=== PATIENT | male | born 1960 | race Asian ===

== ENCOUNTER 2024-06-12 17:00 | Inpatient (IN) | payer OTHER ==
[~2024-06-12] VITALS: Ht 180.3 cm; Wt 108.4 kg
[2024-06-12 20:00] VITALS: BP 138/92; PULSE 87; RESP 20; TEMP 97.5; O2SAT 99
[2024-06-12] MEDS ORDERED: ACETAMINOPHEN 325 MG TABLET PO PRN (20:30)
[2024-06-12] MEDS: LACTULOSE 20 GM/30 ML SOLUTION UDCUP PO SCH (21:53)
[2024-06-12] MEDS: SACUBITRIL/VALSARTAN 24-26 MG TABLET PO SCH (21:54)
[2024-06-12] MEDS: DICLOFENAC SODIUM 1% 100 GM GEL [2GM] TP SCH (21:54)
[2024-06-12] MEDS: dilTIAZem HCL 30 MG TABLET PO SCH (21:54)
[2024-06-12] MEDS: MELATONIN 5 MG TABLET PO PRN (23:16)
[2024-06-12] MEDS: ACETAMINOPHEN 325 MG TABLET PO PRN (23:16)
[2024-06-13 08:00] VITALS: BP 147/83; PULSE 82; RESP 18; TEMP 98.1; O2SAT 97
[2024-06-13 08:39] LABS: BASOPHILS % (AUTO) 0.5 % (0.0-2.0); EOSINOPHILS % (AUTO) 2.6 % (1.0-6.0); HEMATOCRIT 40.7 % (41-53); HEMOGLOBIN 13.8 g/dL (13.5-17.5); LYMPHOCYTES # (AUTO) 1.5 K/uL (1.0-4.8); LYMPHOCYTES % (AUTO) 16.4 % (22.0-44.0); MEAN CORPUSCULAR HEMOGLOBIN 29.5 pg (26.0-34.0); MEAN CORPUSCULAR VOLUME 87 fL (80-100); MONOCYTES # (AUTO) 0.8 K/uL (0.1-1.0); MONOCYTES % (AUTO) 9.1 % (2.0-9.0); NEUTROPHILS # (AUTO) 6.4 K/uL (1.8-7.7); NEUTROPHILS % (AUTO) 71.4 % (40.0-70.0); PLATELET COUNT (AUTO) 197 K/uL (150-450); RED BLOOD CELL COUNT(AUTO) 4.69 MIL/uL (4.50-5.90); RED CELL DISTRIBUTION WIDTH 15.2 % (11.5-14.5); WHITE BLOOD COUNT (AUTO) 8.9 K/uL (4.5-11.0)
[2024-06-13] MEDS: carvediloL 12.5 MG TABLET PO SCH (09:01)
[2024-06-13] MEDS: DAPAGLIFLOZIN PROPANEDIOL 5 MG TABLET PO SCH (09:01)
[2024-06-13 09:06] LABS: ALANINE AMINOTRANSFERASE 24 U/L (12-78); ALBUMIN 3.2 g/dL (3.4-5.0); ALKALINE PHOSPHATASE 143 U/L (46-116); ANION GAP 8 mmol/L (8-16); ASPARTATE AMINOTRANSFERASE 22 U/L (15-37); BILIRUBIN,TOTAL 0.6 mg/dL (0.1-1.0); CALCIUM, TOTAL 9.5 mg/dL (8.8-10.5); CARBON DIOXIDE 29 mmol/L (22-29); CHLORIDE 105 mmol/L (98-107); CREATININE 0.81 mg/dL (0.60-1.30); GLOMERULAR FILTR. RATE CALC > 60 mL/min (>60); GLUCOSE,RANDOM 95 mg/dL (70-110); POTASSIUM 3.9 mmol/L (3.5-5.1); SODIUM SERUM 142 mmol/L (136-145); TOTAL PROTEIN, SERUM 6.9 g/dL (6.4-8.2); UREA NITROGEN, BLOOD 17 mg/dL (7-18)
[2024-06-13] MEDS ORDERED: MULTIVITAMINS WITH MINERALS, THERAPEUTIC TABLET PO ONE (10:45)
[2024-06-13 16:03] VITALS: BP 123/85; PULSE 88; RESP 18; O2SAT 99
[2024-06-13 20:00] VITALS: BP 109/87; PULSE 80; RESP 20; TEMP 98.1; O2SAT 98
[2024-06-14 08:15] VITALS: BP 128/92; PULSE 80; RESP 17; TEMP 97.8; O2SAT 98
[2024-06-14] MEDS: MUPIROCIN CALCIUM 2% 22 GM OINTMENT NASAL SCH (09:19)
[2024-06-14] MEDS: MULTIVITAMINS WITH MINERALS, THERAPEUTIC TABLET PO SCH (09:20)
[2024-06-14] MEDS: NEOMYCIN/BACITRACIN/POLYMYXIN B 30 GM OINTMENT TP SCH (09:21)
[2024-06-14 17:00] VITALS: BP 123/79; PULSE 78; RESP 18; TEMP 98.8; O2SAT 100
[2024-06-14 21:47] VITALS: BP 111/84; PULSE 60; RESP 18; TEMP 98.2; O2SAT 98
[2024-06-14 23:07] VITALS: O2SAT 98
[2024-06-15 07:40] VITALS: BP 128/99; PULSE 85; RESP 18; TEMP 97.9; O2SAT 97
[2024-06-15 08:00] VITALS: O2SAT 97
[2024-06-15 16:50] VITALS: BP 125/87; PULSE 65
[2024-06-15 20:00] VITALS: BP 109/94; PULSE 80; RESP 18; TEMP 98.1; O2SAT 100
[2024-06-15] MEDS: DOCUSATE SODIUM 250 MG CAPSULE PO SCH (20:41)
[2024-06-15] MEDS: SENNOSIDES 8.6 MG TABLET PO SCH (20:41)
[2024-06-15 22:10] VITALS: BP 118/87; PULSE 78
[2024-06-16] MEDS: ONDANSETRON 4 MG TABLET PO PRN (03:45)
[2024-06-16 08:20] VITALS: BP 115/92; PULSE 83; RESP 18; TEMP 96.9; O2SAT 96
[2024-06-16] MEDS: DOCUSATE SODIUM/BENZOCAINE 283-20MG/5 ML MINI-ENEMA PR PRN (15:09)
[2024-06-16 16:10] VITALS: BP 109/68; PULSE 72
[2024-06-16 20:00] VITALS: BP 108/72; PULSE 64; RESP 20; TEMP 97.5; O2SAT 98
[2024-06-16 20:53] VITALS: BP 112/85; PULSE 92; RESP 20; O2SAT 98
[2024-06-16] MEDS: SENNOSIDES 8.6 MG TABLET PO SCH (21:12)
[2024-06-17 08:00] VITALS: BP 110/91; PULSE 80; RESP 20; TEMP 98.6; O2SAT 100
[2024-06-17 16:12] VITALS: BP 108/77; PULSE 76; RESP 18; O2SAT 99
[2024-06-17 19:56] VITALS: BP 122/96; PULSE 79; RESP 18; TEMP 98.2; O2SAT 98
[2024-06-17 21:20] VITALS: O2SAT 98
[2024-06-18 08:00] VITALS: BP 133/95; PULSE 83; RESP 18; TEMP 98.2; O2SAT 97
[2024-06-18 16:00] VITALS: BP 128/83; PULSE 87; RESP 18; O2SAT 99
[2024-06-18 20:00] VITALS: BP 118/77; PULSE 85; RESP 20; TEMP 98.3; O2SAT 99
[2024-06-19 08:00] VITALS: BP 126/97; PULSE 87; RESP 18; TEMP 97.5; O2SAT 97
[2024-06-19 16:30] VITALS: BP 128/88; PULSE 88; RESP 15; O2SAT 98
[2024-06-19 20:00] VITALS: BP 102/69; PULSE 79; RESP 18; TEMP 98.2; O2SAT 96
[2024-06-19 21:00] VITALS: BP 121/79; PULSE 85; RESP 20; O2SAT 96
[2024-06-20 08:35] VITALS: BP 123/73; PULSE 92; RESP 20; TEMP 97.5; O2SAT 97
[2024-06-20 08:38] VITALS: O2SAT 97
[2024-06-20 20:00] VITALS: BP 133/96; PULSE 92; RESP 20; TEMP 97.8; O2SAT 96
[2024-06-21 08:00] VITALS: BP 133/74; PULSE 89; RESP 19; TEMP 98.2; O2SAT 98
[2024-06-21 13:50] LABS: APPEARANCE,URINE CLEAR (CLEAR); BILIRUBIN,URINE NEGATIVE (NEGATIVE); COLOR,URINE YELLOW (YELLOW); GLUCOSE, URINE (UA) >=1000 mg/dL (NEGATIVE); KETONES,URINE NEGATIVE (NEGATIVE); LEUKOCYTE ESTERASE ,URINE NEGATIVE (NEGATIVE); NITRATE,URINE NEGATIVE (NEGATIVE); OCCULT BLOOD,URINE NEGATIVE (NEGATIVE); PROTEIN,URINE NEGATIVE (NEGATIVE); SPECIFIC GRAVITIY, URINE 1.039 (1.003-1.030); UROBILINOGEN,URINE <=1.0 mg/dL (<=1.0)
[2024-06-21 14:03] LABS: BACTERIA,URINE None Seen /HPF (None Seen); RBC,URINE None Seen /HPF (0-2); WBC,URINE None Seen /HPF (0-5)
[2024-06-21 14:04] LABS: SQUAMOUS EPITHELIAL CELL,UR None Seen /LPF (None Seen)
[2024-06-21 20:00] VITALS: BP 123/97; PULSE 91; RESP 18; TEMP 98.1; O2SAT 95
[2024-06-21 21:33] VITALS: O2SAT 95
[2024-06-21 21:34] VITALS: O2SAT 95
[2024-06-22 07:35] LABS: BASOPHILS % (AUTO) 0.5 % (0.0-2.0); EOSINOPHILS % (AUTO) 1.3 % (1.0-6.0); HEMATOCRIT 42.7 % (41-53); HEMOGLOBIN 14.4 g/dL (13.5-17.5); LYMPHOCYTES # (AUTO) 1.3 K/uL (1.0-4.8); LYMPHOCYTES % (AUTO) 17.1 % (22.0-44.0); MEAN CORPUSCULAR HEMOGLOBIN 29.5 pg (26.0-34.0); MEAN CORPUSCULAR HGB CONC 33.7 G/dL (31.0-37.0); MEAN CORPUSCULAR VOLUME 87 fL (80-100); MONOCYTES # (AUTO) 0.6 K/uL (0.1-1.0); NEUTROPHILS # (AUTO) 5.6 K/uL (1.8-7.7); NEUTROPHILS % (AUTO) 73.1 % (40.0-70.0); PLATELET COUNT (AUTO) 182 K/uL (150-450); RED BLOOD CELL COUNT(AUTO) 4.89 MIL/uL (4.50-5.90); RED CELL DISTRIBUTION WIDTH 16.2 % (11.5-14.5); WHITE BLOOD COUNT (AUTO) 7.7 K/uL (4.5-11.0)
[2024-06-22 07:47] LABS: ANION GAP 6 mmol/L (8-16); CALCIUM, TOTAL 9.2 mg/dL (8.8-10.5); CARBON DIOXIDE 28 mmol/L (22-29); CHLORIDE 105 mmol/L (98-107); CREATININE 0.96 mg/dL (0.60-1.30); GLOMERULAR FILTR. RATE CALC > 60 mL/min (>60); GLUCOSE,RANDOM 107 mg/dL (70-110); POTASSIUM 4.1 mmol/L (3.5-5.1); SODIUM SERUM 139 mmol/L (136-145); UREA NITROGEN, BLOOD 10 mg/dL (7-18)
[2024-06-22 08:50] VITALS: BP 130/85; PULSE 97; RESP 17; TEMP 97.9; O2SAT 95
[2024-06-22] MEDS: QUEtiapine FUMARATE 25 MG TABLET PO SCH (11:18)
[2024-06-22] MEDS ORDERED: GADOTERATE MEGLUMINE 10 MMOL/20 ML VIAL IVP ONE (14:55)
[2024-06-22 16:54] VITALS: BP 135/83; PULSE 89
[2024-06-22 20:00] VITALS: BP 108/78; PULSE 63; RESP 20; TEMP 97.9; O2SAT 98
[2024-06-22 21:00] VITALS: BP 124/90; PULSE 82; RESP 18; O2SAT 98
[2024-06-23] VITALS (7 sets, daily range): BP systolic 89–135; BP diastolic 64–91; PULSE 84–110; RESP 18–20; TEMP 98–98.6; O2SAT 97–99
[2024-06-23 10:12] LABS: BASOPHILS % (AUTO) 0.4 % (0.0-2.0); EOSINOPHILS % (AUTO) 1.6 % (1.0-6.0); HEMATOCRIT 42.7 % (41-53); HEMOGLOBIN 14.6 g/dL (13.5-17.5); LYMPHOCYTES % (AUTO) 12.8 % (22.0-44.0); MEAN CORPUSCULAR HEMOGLOBIN 29.8 pg (26.0-34.0); MEAN CORPUSCULAR HGB CONC 34.2 G/dL (31.0-37.0); MEAN CORPUSCULAR VOLUME 87 fL (80-100); MONOCYTES # (AUTO) 0.6 K/uL (0.1-1.0); MONOCYTES % (AUTO) 8.1 % (2.0-9.0); NEUTROPHILS # (AUTO) 6.2 K/uL (1.8-7.7); NEUTROPHILS % (AUTO) 77.1 % (40.0-70.0); PLATELET COUNT (AUTO) 180 K/uL (150-450); RED CELL DISTRIBUTION WIDTH 16.2 % (11.5-14.5)
[2024-06-23 10:19] LABS: HEMOGLOBIN A1C 5.3 % (3.8-5.6)
[2024-06-23 10:23] LABS: ANION GAP 9 mmol/L (8-16); CALCIUM, TOTAL 9.1 mg/dL (8.8-10.5); CARBON DIOXIDE 26 mmol/L (22-29); CHLORIDE 105 mmol/L (98-107); CREATININE 0.91 mg/dL (0.60-1.30); GLOMERULAR FILTR. RATE CALC > 60 mL/min (>60); GLUCOSE,RANDOM 174 mg/dL (70-110); POTASSIUM 3.7 mmol/L (3.5-5.1); PROTHROMBIN TIME 11.4 SEC (9.4-11.6); SODIUM SERUM 140 mmol/L (136-145); UREA NITROGEN, BLOOD 12 mg/dL (7-18)
[2024-06-23 10:26] LABS: ALANINE AMINOTRANSFERASE 29 U/L (12-78); ALBUMIN 3.3 g/dL (3.4-5.0); ALKALINE PHOSPHATASE 137 U/L (46-116); ASPARTATE AMINOTRANSFERASE 19 U/L (15-37); BILIRUBIN,TOTAL 0.6 mg/dL (0.1-1.0); CHOL/HDL RATIO 2.4 (4.2-7.3); CHOLESTEROL 106 mg/dL (131-200); HDL CHOLESTEROL 45 mg/dL (40-60); LDL CHOL (CALC.) 46 mg/dL (0-130); TRIGLYCERIDES 75 mg/dL (15-150)
[2024-06-23 10:28] LABS: TROPONIN I-HIGH SENSITIVITY 6 ng/L (<76)
[2024-06-23 18:15] LABS: GLUCOMETER DEV NAME(LOC) 2WR.1D; GLUCOSE,POINT OF CARE 180 MG/DL (70-110)
[2024-06-24 08:00] VITALS: BP 125/111; PULSE 95; RESP 18; TEMP 97.7; O2SAT 100
[2024-06-24 08:45] VITALS: BP 118/67; PULSE 88; RESP 18
[2024-06-24 15:42] VITALS: BP 105/66; PULSE 88; RESP 18
[2024-06-24 17:00] VITALS: BP 118/94; PULSE 74; RESP 18
[2024-06-24 20:58] VITALS: BP 118/84; PULSE 83; RESP 18; TEMP 97.3; O2SAT 98
[2024-06-24] MEDS: 0.9% SODIUM CHLORIDE 10 ML SYRINGE IVP SCH (21:00)
[2024-06-24 21:47] VITALS: O2SAT 98
[2024-06-25 08:00] VITALS: BP 136/83; PULSE 85; RESP 18; TEMP 98.7; O2SAT 97
[2024-06-25 16:04] VITALS: BP 107/85; PULSE 78; RESP 18; O2SAT 99
[2024-06-25 17:28] VITALS: BP 120/95; PULSE 86; RESP 18; O2SAT 98
[2024-06-25 20:00] VITALS: BP 131/82; PULSE 86; RESP 18; TEMP 98.1; O2SAT 99
[2024-06-25] MEDS: QUEtiapine FUMARATE 25 MG TABLET PO SCH (20:48)
[2024-06-25 21:50] VITALS: O2SAT 99
[2024-06-26 08:00] VITALS: O2SAT 100
[2024-06-26 08:05] VITALS: BP 130/103; PULSE 85; RESP 18; TEMP 97.3; O2SAT 100
[2024-06-26] MEDS: POLYETHYLENE GLYCOL 3350 17 GM PACKET PO PRN (09:03)
[2024-06-26] MEDS: QUEtiapine FUMARATE 25 MG TABLET PO SCH (09:03)
[2024-06-26 09:20] VITALS: BP 118/91; PULSE 88; RESP 18
[2024-06-26] MEDS: PERFLUTREN PROTEIN-A MICROSPHERES 0.22 MG/ML 3 ML VIAL IVP ONE (13:00)
[2024-06-26 17:00] VITALS: BP 132/79; PULSE 86; RESP 16
[2024-06-26 20:00] VITALS: BP 115/78; PULSE 81; RESP 18; TEMP 97.5; O2SAT 99
[2024-06-27 08:00] VITALS: BP 143/88; PULSE 93; RESP 17; TEMP 97.9; O2SAT 100
[2024-06-27 15:40] VITALS: BP 118/80; PULSE 85; RESP 18; O2SAT 100
[2024-06-27 21:55] VITALS: BP 127/94; PULSE 89; RESP 18; TEMP 97.9; O2SAT 99
[2024-06-28 08:00] VITALS: BP 113/81; PULSE 88; RESP 18; TEMP 98.2; O2SAT 100
[2024-06-28 20:00] VITALS: BP 115/69; PULSE 94; RESP 18; TEMP 98.2; O2SAT 100
[2024-06-28 21:34] VITALS: O2SAT 99
[2024-06-29 08:00] VITALS: BP 139/84; PULSE 81; RESP 18; TEMP 97.7; O2SAT 100; O2SAT 99
[2024-06-29 16:05] VITALS: BP 127/82; PULSE 83; RESP 18; O2SAT 97
[2024-06-29 20:00] VITALS: BP 118/80; PULSE 79; RESP 18; TEMP 97.7; O2SAT 100
[2024-06-30 08:05] VITALS: BP 134/90; PULSE 88; RESP 19; TEMP 98.2; O2SAT 100
[2024-06-30 16:40] VITALS: BP 115/88; PULSE 87
[2024-06-30 20:42] VITALS: BP 127/66; PULSE 89; RESP 16; TEMP 97.8; O2SAT 99
[2024-06-30 21:42] VITALS: O2SAT 99
[2024-07-01 08:00] VITALS: BP 126/85; PULSE 91; RESP 20; TEMP 98.2; O2SAT 98
[2024-07-01] MEDS: APIXABAN 5 MG TABLET PO SCH (08:09)
== END 2024-07-01 09:50 | DRG 949 ==
LOC: 2WR 17:00 → UNDODISIN 06-23 09:58
PROVIDERS: ADMIT Physical Medicine & Rehabilitation; ATTEND Physical Medicine & Rehabilitation
DX: S06.360D Traumatic hemorrhage of cerebrum, unspecified, without loss of consciousness, subsequent encounter (principal); G81.94 Hemiplegia, unspecified affecting left nondominant side; I50.32 Chronic diastolic (congestive) heart failure; R41.4 Neurologic neglect syndrome; R44.3 Hallucinations, unspecified; E66.01 Morbid (severe) obesity due to excess calories; E78.5 Hyperlipidemia, unspecified; I11.0 Hypertensive heart disease with heart failure; I48.91 Unspecified atrial fibrillation; Z74.09 Other reduced mobility; K59.00 Constipation, unspecified; K74.60 Unspecified cirrhosis of liver; F15.10 Other stimulant abuse, uncomplicated; N40.0 Benign prostatic hyperplasia without lower urinary tract symptoms; B19.20 Unspecified viral hepatitis C without hepatic coma; R13.10 Dysphagia, unspecified; R29.810 Facial weakness; R41.89 Other symptoms and signs involving cognitive functions and awareness; R26.81 Unsteadiness on feet; R48.2 Apraxia; R53.1 Weakness; I95.9 Hypotension, unspecified; X58.XXXD Exposure to other specified factors, subsequent encounter; R45.87 Impulsiveness; Z87.891 Personal history of nicotine dependence; Z22.322 Carrier or suspected carrier of Methicillin resistant Staphylococcus aureus; Z79.899 Other long term (current) drug therapy; Z68.33 Body mass index [BMI] 33.0-33.9, adult
CPT/HCPCS: 70450; 70553; 80048; 80053; 80061; 81001; 82140; 82962; 83036; 84484; 85025; 85610; 85730; 86850; 86900; 86901; 87081; 92507; 92523; 92526; 92610; 93005; 93306; 93970; 97110; 97112; 97116; 97163; 97530; 97535; 99366; Q0162

== ENCOUNTER 2024-06-23 10:00 | Emergency (ER) | payer OTHER ==
[~2024-06-23] VITALS: Ht 180.3 cm; Wt 107.7 kg
[2024-06-23] MEDS ORDERED: 0.9% SODIUM CHLORIDE 10 ML SYRINGE IVP ONE (10:15)
[2024-06-23] MEDS ORDERED: SODIUM CHLORIDE 0.9% 100 ML ONE ×2 (10:16→10:27)
[2024-06-23] MEDS ORDERED: IOHEXOL 350 MG/ML 100 ML VIAL ONE ×2 (10:16→10:27)
[2024-06-23 11:02] VITALS: BP 113/72; PULSE 80; RESP 16; TEMP 98.2; O2SAT 98
== END 2024-06-23 11:50 ==
LOC: EMS 10:01
DX: I48.91 Unspecified atrial fibrillation (principal); R55 Syncope and collapse; Z86.73 Personal history of transient ischemic attack (TIA), and cerebral infarction without residual deficits; Z79.01 Long term (current) use of anticoagulants
CPT/HCPCS: 99291; 70496; 71045; 70498; 82962; 82948; 93005; 70450; Q9967; J7050